=== PATIENT | female | born 1990 | race Two or more races ===

== ENCOUNTER 2025-04-15 18:11 | Emergency (ER) | payer MEDICAID, OTHER ==
[~2025-04-15] VITALS: Ht 167.6 cm; Wt 131.0 kg
[2025-04-15 18:11] VITALS: BP 113/58; PULSE 97; RESP 18; TEMP 98.8; O2SAT 96
== END 2025-04-15 19:57 | disposition left against medical advice (07) ==
LOC: EDBD 18:11 → ER 18:11
DX: R10.9 Unspecified abdominal pain (principal); Z53.21 Procedure and treatment not carried out due to patient leaving prior to being seen by health care provider

== ENCOUNTER 2025-06-28 20:23 | Observation (INO) | payer MEDICAID ==
[~2025-06-28] VITALS: Ht 170.2 cm; Wt 135.6 kg
[2025-06-28] MEDS: LACTATED RINGER'S 1,000 ML IV ONE (21:00)
[2025-06-28] MEDS ORDERED: LACTATED RINGER'S 1,000 ML IV SCH (21:00)
[2025-06-28] MEDS: TERBUTALINE SULFATE 1 MG/ML 1ML VIAL SC SCH (21:28)
--- NOTE | 2025-06-28 21:40 | DVH ---
EXAM: US OB ULTRASOUND COMP GTR 14 WKS HISTORY: Cervical Length and EFW TECHNIQUE: Multiple real-time grayscale images of the gravid uterus with duplex Doppler color flow an d M-mode spectral analysis. COMPARISON: None FINDINGS: IUP single live fetus at 21 weeks, 2 days average ultrasound age (AUA) based on composite averages of the BPD, head circumference, abdominal circumference and femur length MEASUREMENTS: BPD: 5.02 cm GA: 21 w 1 d HC: 18.9 cm GA: 21 w 1 d AC: 15.2 cm GA: 20 w 3 d FL: 3.79 cm GA: 22 w 1 d Estimated weight 407 grams heart rate 144 beats per minute KEON is subjectively within normal limits, MVP 5.2 ANATOMIC SURVEY: Cephalic Presentation Unremarkable placenta without previa or abruption Cervix is closed measuring 4.3 cm IMPRESSION: 1. IUP single live fetus at 21 weeks, 2 AUA corresponding to an IGNACIO of November 06, 2025. 2. No abnormality detected. 3. Estimated weight measures 407 g 4. Cervix is closed and measures up to 4.3 cm in length
--- NOTE | 2025-06-28 22:12 | DVHDS2 ---
Physician Discharge Progress N Final Diagnosis: contractions, resolved Previous c/s x2 Operations or Procedures: Operations or Procedures S: 34yo IUP@21.3 wks presents to OB triage with c/o abdominal pain and vaginal pressure like baby is coming. Pt reports UCs Q5 min that started 15 minutes before getting to the hospital. States she wants to push. Pt instructed not to push at this time. Denies LOF/VB/STEVENS/vision changes/RUQ pain. Endorses +FM. PNC at [place], pt reports GDM, A1 diagnosis and possible need for cervical cerclage. records reviewed on pts [employer] [place] [facility] and no GDM lab seen. Pt has left ovarian cyst per [place] sono. Anatomy scan WNL. Pt treated for chlamydia in early , VERONA was negative. OB Hx: #1 - C/S, PTD around 28 wks #2 - C/S, full term 39 wks #3 - current, had vaginal bleeding in early (threatened ) PMH: asthma PSH: C/S x2 O: VSS, see CPN +FHTs via doppler (see RN charting) TOCO: no UCs seen, pt reports when she has UCs Terbutaline SQ x1 doses given, pt denies UCs afterwards 1L LR IV fluid bolus given OB sono: no placenta previa, abruption, or accreta noted OB labs ordered A: 34yo IUP@21.3 wks contractions, resolved Previous c/s x2 P: D/C home Dr. Benavides consulted, agrees with POC. SAB precautions reviewed. Pt instructed to call [place] and schedule f/u with OB in 1-2 days. Pt verbalized understanding. Other Interventions Other Interventions [place] [id number] Ph: [phone] DIAGNOSTIC IMAGING Diagnostic Imaging Report : [id number] Signed PATIENT: MARKIE GRAMAJO ACCT: [id number] UNIT: [id number] : 1990 LOC: [facility] ROOM / BED: [facility] / A AGE / SEX: 34 / F ADM STATUS: ADM IN SERVICE 57 ORDERING PHYSICIAN: TANIA HUNT CNM PROCEDURE(s): OBUS - OB ULTRASOUND COMP GTR 14 WKS REASON: Cervical Length and EFW ORDER NUMBER(s): [id number], ACCESSION NUMBER(s): [id number] EXAM: US OB ULTRASOUND COMP GTR 14 WKS HISTORY: Cervical Length and EFW TECHNIQUE: Multiple real-time grayscale images of the gravid uterus with duplex Doppler color flow and M-mode spectral analysis. COMPARISON: None FINDINGS: IUP single live fetus at 21 weeks, 2 days average ultrasound age (AUA) based on composite averages of the BPD, head circumference, abdominal circumference and femur length MEASUREMENTS: BPD: 5.02 cm GA: 21 w 1 d HC: 18.9 cm GA: 21 w 1 d AC: 15.2 cm GA: 20 w 3 d FL: 3.79 cm GA: 22 w 1 d Estimated weight 407 grams heart rate 144 beats per minute KEON is subjectively within normal limits, MVP 5.2 ANATOMIC SURVEY: Cephalic Presentation Unremarkable placenta without previa or abruption Cervix is closed measuring 4.3 cm IMPRESSION: 1. IUP single live fetus at 21 weeks, 2 AUA corresponding to an IGNACIO of November 06, 2025. 2. No abnormality detected. 3. Estimated weight measures 407 g 4. Cervix is closed and measures up to 4.3 cm in length ATED BY: TOMASZ RAHMAN MD DICTATED DATE/TIME: 06/28/252136 SIGNED BY: TOMASZ RAHMAN MD SIGNED DATE/TIME: 06/28/252136 CC: Condition on Discharge: Stable Disposition: Home Discharge Instructions: Diet: Consistent carbohydrate Activity: See Comment Activity comment: pelvic rest Medications: see med list Follow Up Care: Specialist: f/u shirley newberry in 1-2 days Discharge Statement: "Patient was advised to return to the ER or call 911 if any headaches, dizziness, shortness of breath, chest pain, abdominal pain, bleeding, fevers, or worsening of medical condition. Patient was counseled about treatment plan, medications, possible side effects, patientverbalized understanding. All questions were answered to the best of my ability. This discharge took greater then 30 minutes in planning, reviewing documentation, counseling the patient, and discussing with other team members." Visit Coding OBGYN Date of Service: Jun 28, 2025 Billing Provider: TANIA HUNT CNM MANAGER OF RECRUITING Common Visit Codes: [id number] OBS CARE (HIGH) TANIA HUNT CNM Jun 28, 2025 22:12
[2025-06-28 22:28] LABS: Alanine Aminotransferase 31 U/L (7-40); Albumin 3.8 g/dL (3.2-4.8); Alkaline Phosphatase 52 U/L (46-116); Anion Gap 11 (5-15); BUN/Creatinine Ratio 11.1 (10.0-20.0); Calcium 9.2 mg/dL (8.7-10.4); Carbon Dioxide 23 mmol/L (20-31); Glucose 82 mg/dL (74-106); Potassium 3.6 mmol/L (3.5-5.1); Sodium 142 mmol/L (136-145); Total Protein 6.2 g/dL (5.7-8.2)
[2025-06-28 22:29] LABS: Bilirubin, Total 0.3 mg/dL (0.2-1.0); Blood Urea Nitrogen 7 mg/dL (9-23); Chloride 108 mmol/L (98-107)
[2025-06-28 23:54] LABS: Prothrombin Time 10.2 sec (9.3-11.8)
[2025-06-28 23:55] LABS: Fibrinogen 409.0 mg/dL (177-375); INR 0.96 (0.9-1.15); Partial Thromboplastin Time 24.9 SEC (24.5-34.5)
[2025-06-29 12:11] LABS: RAPID PLASMA REAGIN QUANT 1:2 Titer (NONREACTIVE)
== END 2025-06-28 23:18 | disposition home or self-care (01) ==
LOC: LDRP 20:23
PROVIDERS: ADMIT Obstetrics & Gynecology; ATTEND Obstetrics & Gynecology
DX: O62.9 Abnormality of forces of labor, unspecified (principal); O24.410 Gestational diabetes mellitus in pregnancy, diet controlled; O34.82 Maternal care for other abnormalities of pelvic organs, second trimester; O99.512 Diseases of the respiratory system complicating pregnancy, second trimester; J45.909 Unspecified asthma, uncomplicated; O09.522 Supervision of elderly multigravida, second trimester; R79.1 Abnormal coagulation profile; R53.1 Weakness; Z3A.21 21 weeks gestation of pregnancy; Z79.899 Other long term (current) drug therapy; Z98.890 Other specified postprocedural states; Z88.6 Allergy status to analgesic agent
CPT/HCPCS: 36415; 76805; 80053; 82948; 85384; 85610; 85730; 86592; 86593; 86703; 86762; 86780; 86803; 87340; 94760; 96360; 96372; G0378; J3105; 59025